=== PATIENT | male | born 1965 | race Caucasian/White ===

== ENCOUNTER 2017-07-10 07:52 | Emergency (ER) | payer OTHER ==
[2017-07-10 08:10] VITALS: TEMP 98.7; BMI 26.3
[2017-07-10] MEDS ORDERED: ACETAMINOPHEN 325 MG TABLET (FP) PO ONE (09:02)
[2017-07-10] MEDS ORDERED: ACETAMINOPHEN 325 MG TABLET (FP) ONE (09:06)
--- NOTE | 2017-07-10 09:12 | PDOC ---
History of Present Illness - General Chief Complaint: Edema Stated Complaint: PAIN IN LEGS Time Seen by Provider: 07/10/17 08:26 History Source: Patient Exam Limitations: No Limitations - History of Present Illness Initial Comments: 07/10/17 09:02 Patient is a 51-year-old male past medical history of DVT of the left leg, anxiety, bunions who presents to the emergency department with left leg swelling and pain. Patient states that his symptoms began approximately 1 month ago, however, they got worse over the last 2 days. Patient states that the swelling has increased, and it hurts to the touch. He states that he is never had pain in his leg like this before. He also states that he had chest pain approximately 1 month ago when the pain in his leg started. He denies chest pain currently. Denies fevers, chills, shortness of breath, cough, weakness, numbness and tingling of the leg, falls. Denies recent travel. Past History - Travel Traveled outside of the country in the last 30 days: No Close contact w/someone who was outside of country & ill: No - Past Medical History Allergies/Adverse Reactions: Allergies Allergy/AdvReac Type Severity Reaction Status Date / Time No Known Allergies Allergy Verified 07/10/17 08:03 Home Medications: Ambulatory Orders Cephalexin Monohydrate [Keflex -] 500 mg PO Q8H #21 capsule 07/10/17 Clonazepam [Klonopin -] 0.5 mg PO QID 07/10/17 Tramadol HCl 50 mg PO BID #7 tablet MDD 2 07/10/17 COPD: No DVT: Yes - Immunization History Immunization Up to Date: Yes - Suicide/Smoking/Psychosocial Hx Smoking Status: No Smoking History: Never smoked Have you smoked in the past 12 months: No Number of Cigarettes Smoked Daily: 0 Hx Alcohol Use: No Drug/Substance Use Hx: No Review of Systems - Review of Systems Able to Perform ROS?: Yes Comments:: 07/10/17 10:45 CONSTITUTIONAL: Absent: fever, chills, diaphoresis, generalized weakness, malaise, loss of appetite HEENT: Absent: rhinorrhea, nasal congestion, throat pain, throat swelling, difficulty swallowing, mouth swelling, ear pain, eye pain, visual Changes CARDIOVASCULAR: Absent: chest pain, loss of consciousness, palpitations, irregular heart rate, peripheral edema RESPIRATORY: Absent: cough, shortness of breath, dyspnea with exertion, orthopnea, wheezing, stridor, hemoptysis GASTROINTESTINAL: Absent: abdominal pain, abdominal distension, nausea, vomiting, diarrhea, constipation, melena, hematochezia GENITOURINARY: Absent: dysuria, frequency, urgency, hesitancy, hematuria, flank pain, genital pain MUSCULOSKELETAL: Present: Edema/pain to L lower extremity. Absent: myalgia, arthralgia, joint swelling SKIN: Absent: rash, itching, pallor HEMATOLOGIC/IMMUNOLOGIC: Present: Hx of DVT in L leg Absent: easy bleeding, easy bruising, lymphadenopathy, frequent infections ENDOCRINE: Absent: unexplained weight gain, unexplained weight loss, heat intolerance, cold intolerance NEUROLOGIC: Absent: headache, focal weakness or paresthesias, dizziness, unsteady gait, seizure, mental status changes, bladder or bowel incontinence PSYCHIATRIC: Absent: anxiety, depression, suicidal or homicidal ideation, hallucinations. Is the patient limited Georgian proficient: No *Physical Exam - Vital Signs Last Vital Signs Temp Pulse Resp BP Pulse Ox 98.7 F 96 H 20 136/87 97 07/10/17 07:59 07/10/17 07:59 07/10/17 07:59 07/10/17 07:59 07/10/17 07:59 - Physical Exam Comments: 07/10/17 10:46 GENERAL: Well developed, well nourished. Awake and alertx3. No acute distress, laying on exam bed breathing easily. HEENT: Normocephalic, atraumatic. PERRLA, EOMI. No conjunctival pallor. Sclera are non- icteric. Moist mucous membranes. Oropharynx is clear. NECK: Supple. Full ROM. No JVD. Carotid pulses 2+ and symmetric, without bruits. No thyromegaly. No lymphadenopathy. CARDIOVASCULAR: Regular rate and rhythm. No murmurs, rubs, or gallops. Distal pulses are 2+ and symmetric. PULMONARY: No evidence of respiratory distress. Lungs clear to auscultation bilaterally. No wheezing, rales or rhonchi. ABDOMINAL: Soft. Non-tender. Non-distended. No rebound or guarding. No organomegaly. Normoactive bowel sounds. MUSCULOSKELETAL Normal range of motion at all joints. No bony deformities or tenderness. No CVA tenderness. EXTREMITIES: 2+ pitting edema to the LLE. DP and PT pulses 2+ b/l. Sensation grossly intact. TTP of the calf. (+) homans sign. No cyanosis. No clubbing. SKIN: Warm and dry. Normal capillary refill. No rashes. No jaundice. NEUROLOGICAL: Alert, awake, appropriate. Cranial nerves 2-12 intact. No deficits to light touch and temperature in face, upper extremities and lower extremities. No motor deficits in the in face, upper extremities and lower extremities. Normoreflexic in the upper and lower extremities. Normal speech. Toes are down- going bilaterally. Gait is normal without ataxia. PSYCHIATRIC: Cooperative. Good eye contact. Appropriate mood and affect. ED Treatment Course - LABORATORY CBC & Chemistry Diagram: 07/10/17 10:00 07/10/17 10:00 Medical Decision Making - Medical Decision Making 07/10/17 09:48 Patient is a 51-year-old male past medical history of DVT in the left leg, anxiety, who presents to the emergency department today complaining of left lower leg pain. We will rule out repeat DVT of the lower left extremity. Also probable differential diagnosis includes thrombophlebitis, swelling due to bunion. 1.CBC, CMP, PT/INR, PTT, troponin, BUN 2.duplex vascular study of the left leg. 3.Tylenol 4.reevaluate 07/10/17 10:49 No leukocytosis, DVT study is currently negative for the left lower extremity. Waiting on other lab results. Patient feels better with Tylenol. 07/10/17 12:07 Lab work shows a mildly elevated Creatinine 1.4, CK slightly elevated. DDx phlebitis vs a cellulitis. Will d/c home at this time with keflex and supportive care instructions. Pt. has f/u appointment with PCP on Wednesday and was instructed to keep the appointment. *DC/Admit/Observation/Transfer Diagnosis at time of Disposition: Phlebitis Cellulitis Qualifiers: Site of cellulitis: extremity Site of cellulitis of extremity: lower extremity Laterality: left Qualified Code(s): L03.116 - Cellulitis of left lower limb; L03.116 - Cellulitis of left lower limb - Discharge Dispostion Disposition: HOME Condition at time of disposition: Good Admit: No - Referrals Referrals: Nicolette Santiago [Primary Care Provider] - Ryan Zabala MD [Staff Physician] - - Patient Instructions Printed Discharge Instructions: DI for Peripheral Edema, Unilateral Additional Instructions: You have leg swelling. You were prescribed antibiotics. Please take the medication as prescribed. Keep your leg elevated when resting. Use heating packs on the leg for 20 minute periods 3-5 times a day to help with the swelling. Wear the YUDI wrap for comfort. You were prescribed tramadol as well for pain. Take this medication if your symptoms are not relieved by Tylenol. Follow the instructions on the prescription bottle for Tramadol. Do not take more than 2 tabs a day. You may take Tylenol 350 every 4-6 hours not to exceed 4 ,000mg a day. Keep your follow up with your primary care doctor on Wednesday. One of your kidney function tests were elevated today. Please drink plenty of water and follow up with your primary care doctor about the results. Return to the ED if you have worsening pain, fevers, chills, or any changes in your symptoms.
[2017-07-10 10:29] LABS: MCH 30.7 pg (25.7-33.7); MCHC 33.4 g/dl (32.0-35.9); MEAN PLT VOLUME 9.6 fl (7.5-11.1); NEUT % 68.8 % (42.8-82.8); PLATELET COUNT 214 K/MM3 (134-434); RDW 14.6 % (11.9-15.9); WHITE BLOOD COUNT 7.4 K/mm3 (4.0-10.0)
[2017-07-10 10:49] LABS: ALBUMIN 3.6 g/dl (3.4-5.0); ANION GAP 8 (8-16); BILIRUBIN,TOTAL 0.3 mg/dL (0.2-1.0); CALCIUM 8.5 mg/dL (8.5-10.1); CO2 26 mmol/L (21-32); CREATININE 1.4 mg/dL (0.7-1.3); GLUCOSE,RANDOM 102 mg/dL (74-106); SGOT/AST 33 U/L (15-37); SGPT/ALT 39 U/L (12-78); TOT PROT 6.7 g/dl (6.4-8.2)
[2017-07-10 10:52] LABS: ALK PHOS 77 U/L (45-117); CPK 420 IU/L (39-308); TROPONIN I < 0.02 ng/ml (0.00-0.05)
[2017-07-10 10:58] LABS: PROTHROMBIN TIME (PATIENT) 11.3 SEC (9.98-11.88)
[2017-07-10 11:00] LABS: ACTIVATED PTT 30.6 SECONDS (26.9-34.4)
--- NOTE | 2017-07-10 12:07 | PDOC ---
*Physical Exam - Vital Signs Last Vital Signs Temp Pulse Resp BP Pulse Ox 98.7 F 96 H 20 136/87 97 07/10/17 07:59 07/10/17 07:59 07/10/17 07:59 07/10/17 07:59 07/10/17 07:59 ED Treatment Course - LABORATORY CBC & Chemistry Diagram: 07/10/17 10:00 07/10/17 10:00 - ADDITIONAL ORDERS Additional order review: Laboratory Results 07/10/17 07/10/17 10:00 10:00 PT with INR 11.30 INR 1.00 PTT (Actin FS) 30.6 Sodium 139 Potassium 4.3 Chloride 105 Carbon Dioxide 26 Anion Gap 8 BUN 18 Creatinine 1.4 H Creat Clearance w eGFR 53.22 Random Glucose 102 Calcium 8.5 Total Bilirubin 0.3 AST 33 ALT 39 Alkaline Phosphatase 77 Creatine Kinase 420 H Creatine Kinase Index 1.0 CK-MB (CK-2) 4.378 H Troponin I < 0.02 B-Natriuretic Peptide 78.53 Total Protein 6.7 Albumin 3.6 07/10/17 10:00 RBC 4.22 MCV 92.0 MCHC 33.4 RDW 14.6 MPV 9.6 Neutrophils % 68.8 Lymphocytes % 16.0 Monocytes % 9.2 Eosinophils % 4.0 Basophils % 2.0 - Medications Given in the ED: ED Medications Discontinued Medications Generic Name Dose Route Start Last Admin Trade Name Juan Aq PRN Reason Stop Dose Admin Acetaminophen 650 mg 07/10/17 09:02 07/10/17 09:00 Tylenol - PO 07/10/17 09:03 650 mg ONCE ONE Administration Medical Decision Making - Medical Decision Making 07/10/17 12:06 The patient was seen and evaluated in conjunction with DARRIUS Sarkar under my direct supervision, ancillary studies were reviewed. I independently interviewed and evaluated the patient and I agree with the plan as outlined by DARRIUS Sarkar 51y M hx of dvt presents with complaint of persistent L leg pain, fels sore after walking, had seen his PMD and gone to another ER had received xrays. No associated cp, sob, fever/chlls. on exam pt has mild edema and erythema of his LLE from ankle to the mid hill, neg homans sign, mild warmth, no streaking. suspect celluitis - will treat with keflex pt has pmd fu in a few days scheduled already labs noted for cr of 1.4 - will have pt fu this up with his pmd pt given a copy of his labs *DC/Admit/Observation/Transfer Diagnosis at time of Disposition: Phlebitis Cellulitis Qualifiers: Site of cellulitis: extremity Site of cellulitis of extremity: lower extremity Laterality: left Qualified Code(s): L03.116 - Cellulitis of left lower limb - Discharge Dispostion Disposition: HOME Condition at time of disposition: Improved Admit: No - Prescriptions Prescriptions: Cephalexin Monohydrate [Keflex -] 500 mg PO Q8H #21 capsule Tramadol HCl 50 mg PO BID #7 tablet MDD 2 - Referrals Referrals: Nicolette Santiago [Primary Care Provider] - Ryan Zabala MD [Staff Physician] - - Patient Instructions Printed Discharge Instructions: DI for Peripheral Edema, Unilateral Additional Instructions: You have leg swelling. You were prescribed antibiotics. Please take the medication as prescribed. Keep your leg elevated when resting. Use heating packs on the leg for 20 minute periods 3-5 times a day to help with the swelling. Wear the YUDI wrap for comfort. You were prescribed tramadol as well for pain. Take this medication if your symptoms are not relieved by Tylenol. Follow the instructions on the prescription bottle for Tramadol. Do not take more than 2 tabs a day. You may take Tylenol 350 every 4-6 hours not to exceed 4 ,000mg a day. Keep your follow up with your primary care doctor on Wednesday. One of your kidney function tests were elevated today. Please drink plenty of water and follow up with your primary care doctor about the results. Return to the ED if you have worsening pain, fevers, chills, or any changes in your symptoms.
[2017-07-10 12:58] VITALS: BP 131/80; PULSE 89
--- NOTE | 2017-07-14 13:00 | EKG ---
Test Reason : Blood Pressure : / mmHG Vent. Rate : 073 BPM Atrial Rate : 073 BPM P-R Int : 156 ms QRS Dur : 086 ms QT Int : 380 ms P-R-T Axes : 075 036 043 degrees QTc Int : 418 ms NORMAL SINUS RHYTHM EARLY REPOLARIZATION NO PREVIOUS ECGS AVAILABLE Confirmed by JALEN LOWE MD ([id number]) on 07/14/2017 12:59:34 PM Referred By: Confirmed By:JALEN LOWE MD
== END 2017-07-10 12:58 | disposition home or self-care (01) ==
LOC: JER 07:52
DX: L03.116 Cellulitis of left lower limb (principal); I80.02 Phlebitis and thrombophlebitis of superficial vessels of left lower extremity; Z86.718 Personal history of other venous thrombosis and embolism; F41.9 Anxiety disorder, unspecified
CPT/HCPCS: 36415; 80053; 82550; 82553; 83880; 84484; 85025; 85610; 85730; 93005; 93010; 93971-TC; 99281-25

== ENCOUNTER 2017-10-22 06:03 | Emergency (ER) | payer OTHER ==
[2017-10-22 06:49] VITALS: BMI 25.1
--- NOTE | 2017-10-22 07:43 | PDOC ---
History of Present Illness - General Chief Complaint: Chronic pain Stated Complaint: PAIN Time Seen by Provider: 10/22/17 07:04 History Source: Patient Exam Limitations: No Limitations - History of Present Illness Initial Comments: 10/22/17 07:41 51 y/o homeless M with PMH DVT (2016; tx with heparin gtt, sent home with oral a /c however unable to take d/t living situation), R bunionectomy (2014; [facility]), anxiety disorder, who presents to the ED c/o burning pain in his b/l lower extremities over the last 10 hrs. As per pt, yesterday he got lost so [place]. At 9PM, he noticed that his soles started burning, and his toes developed numbness and tingling and became "painful". The pain was constant, 10/10. During this time, pt also endorsed edema in his LLE. Pt's sx are exacerbated with movement, and alleviated by rest. Pt denies ARROYO, fever, chills, SOB, or changes in urinary or bowel function. PMH: as above PsxH: R bunionectomy (2014; [facility]) meds: Klonapin q6h PRN (rx by Dr. Jose F Escamilla) allergies: Tylenol - emesis FH: mother- dementia SH: has been homeless since last June, rarely uses half-way denies smoking, alcohol or recreational drug use Past History - Travel Traveled outside of the country in the last 30 days: No - Past Medical History Allergies/Adverse Reactions: Allergies Allergy/AdvReac Type Severity Reaction Status Date / Time No Known Allergies Allergy Verified 10/22/17 08:50 Home Medications: Ambulatory Orders Gabapentin [Neurontin] 300 mg PO DAILY #7 capsule 10/22/17 COPD: No DVT: Yes (tx 2016 heparin gtt) - Surgical History Orthopedic Surgery: Yes (R bunionectomy ([facility] 2014)) - Family Disease History Family Disease History: Other: Mother (dementia) - Immunization History Immunization Up to Date: Yes - Suicide/Smoking/Psychosocial Hx Smoking Status: No Smoking History: Unknown if ever smoked Have you smoked in the past 12 months: No Number of Cigarettes Smoked Daily: 0 Information on smoking cessation initiated: No Hx Alcohol Use: No Drug/Substance Use Hx: No Hx Substance Use Treatment: No Review of Systems - Review of Systems Able to Perform ROS?: Yes Is the patient limited Kazakh proficient: No Musculoskeletal: Yes: Joint Swelling (LLE edema), Muscle Pain *Physical Exam - Vital Signs Last Vital Signs Temp Pulse Resp BP Pulse Ox 98.1 F 71 18 118/72 100 10/22/17 06:43 10/22/17 06:43 10/22/17 06:43 10/22/17 06:43 10/22/17 06:43 - Physical Exam General Appearance: Yes: Appropriately Dressed HEENT: positive: EOMI, DEANNA Neck: positive: Supple Respiratory/Chest: positive: Lungs Clear Cardiovascular: positive: Regular Rhythm, Regular Rate Vascular Pulses: Dorsalis-Pedis (R): 2+, Doralis-Pedis (L): 2+ Gastrointestinal/Abdominal: positive: Normal Bowel Sounds, Flat Musculoskeletal: positive: Normal Inspection, Muscle Spasm, Other Extremity: positive: Normal Inspection, Normal Range of Motion Neurologic: positive: thread drawer II-XII NML intact ED Treatment Course - LABORATORY CBC & Chemistry Diagram: 10/22/17 08:22 10/22/17 08:22 Medical Decision Making - Medical Decision Making 10/22/17 08:15 51 y/o homeless M with PMH DVT (2015; tx with heparin gtt, sent home with oral a /c however unable to take d/t living situation), R bunionectomy (2014; [facility]), anxiety disorder, who presents to the ED c/o burning pain in his b/l lower extremities over the last 10 hrs. Pt with neuropathy, will check B12, folate. Though pt without hx DM, will check A1c. It is also possible that pt has neuropathy associated with DVT- has hx L DVT. Will order b/l duplex to check. Does not appear to be fungal, as pt without pruritis or increased erythema Will order CBC BMP HbA1c Vit B12 Duplex sono -RLE, LLE Will give Motrin 600mg PO x 1 -for pain control 10/22/17 09:24 Labs returned, pt without white count, other labs WNL. Cr 1.5, however baseline 1.4 Duplex pending 10/22/17 09:58 Duplex (-) for DVT Called lab, Vitamin B12, A1c level still pending. Will f/u 10/22/17 11:07 A1c returned 6.1. B12 pending - will most likely return tomorrow. Pt for discharge on gabapentin 300mg x 1 week *DC/Admit/Observation/Transfer Diagnosis at time of Disposition: Neuropathy - Discharge Dispostion Disposition: HOME Condition at time of disposition: Stable Admit: No - Prescriptions Prescriptions: Gabapentin [Neurontin] 300 mg PO DAILY #7 capsule - Referrals Referrals: Nicolette Santiago [Primary Care Provider] - Camden Barlow MD [Staff Physician] - - Patient Instructions Additional Instructions: You were recently in the hospital for numbness and tingling in your feet. We are sending you home with: Gabapentin 300mg - take one pill a day for the next week. Take at night before bed. Please follow up with: Dr. Camden Barlow and Dr. Liliana Martinez (resident) at the clinic at: [address] [place], [place] Call [phone] to schedule an appointment. We recommend you follow up on Wednesday- October 26, 2016 or November 02, 2016. - Post Discharge Activity
--- NOTE | 2017-10-22 07:48 | PDOC ---
Attending Attestation - HPI HPI: 10/22/17 08:27 The patient is a 51 year old male, with a significant past medical history of left lower extremity DVT(2016) and anxiety, who presents to the emergency department with bilateral foot burning and pain since last night. The patient reports he was doing about 4 hours of walking yesterday, and subsequently felt the soles of his feet burning. He reports associated numbness and tingling in his toes bilaterally, left lower extremity edema, and bilateral foot pain(rates it a 10/10) Patient reports his symptoms are exacerbated with movement. Patient denies any associated chest pain, shortness of breath, diaphoresis, or palpitations. He denies any abdominal pain, nausea, or vomiting. He denies any fever or chills. He denies any dysuria, hematuria, frequency, or urgency. Patient is requesting pain medications. Allergies: Tylenol Past Surgical History: Bunionectomy Social History: Non smoker. No ETOH or recreational drug use. Patient reports he is homeless. PCP: Dr. Kohler - Medical Decision Making 10/22/17 0 Documentation prepared by Lynsey Gonzalez, acting as director medical writing for Raquel Thomas MD. <Lynsey Gonzalez - Last Filed: 10/22/17 08:27> - Resident Resident Name: Liliana Martinez - ED Attending Attestation I have performed the following: I have examined & evaluated the patient, The case was reviewed & discussed with the resident, I agree w/resident's findings & plan, Exceptions are as noted - Physicial Exam PE: GENERAL: Awake, alert, and fully oriented, in no acute distress HEAD: No signs of trauma EYES: PERRLA, EOMI, sclera anicteric, conjunctiva clear ENT: Auricles normal inspection, hearing grossly normal, nares patent, oropharynx clear without exudates. Moist mucosa NECK: Normal ROM, supple, no lymphadenopathy, JVD, or masses LUNGS: Breath sounds equal, clear to auscultation bilaterally. No wheezes, and no crackles HEART: Regular rate and rhythm, normal S1 and S2, no murmurs, rubs or gallops ABDOMEN: Soft, nontender, normoactive bowel sounds. No guarding, no rebound. No masses EXTREMITIES: Normal range of motion. 1+ pitting edema RLE to ankle. No clubbing or cyanosis. No cords, erythema, or tenderness NEUROLOGICAL: Cranial nerves II through XII grossly intact. Normal speech, normal gait SKIN: Warm, Dry, normal turgor, no rashes. +Peeling skin to the feet B/L, no erythema. +Small L great toe subungual hematoma without swelling. - Medical Decision Making Pt with tingling and pain to both feet after walking for hours yesterday. Patient is homeless, states his shoes were irritating his feet. Shoes were not wet. Denies history of HIV, alcohol, DM. Will obtain dopplers (hx of DVT to L leg, and the R leg is currently swollen) and labs including A1C. DDx DVT vs naturopathy. Likely DC home. <Raquel Thomas - Last Filed: 10/22/17 08:40>
[2017-10-22] MEDS ORDERED: IBUPROFEN 600 MG TABLET (FP) PO ONE ×2 (08:17→09:27)
[2017-10-22 08:52] LABS: BASO % 1.2 % (0-2.0); EOS % 1.3 % (0-4.5); HEMATOCRIT 40.5 % (35.4-49); HEMOGLOBIN 12.9 GM/dL (11.7-16.9); LYMPH % 15.6 % (8-40); MCH 29.4 pg (25.7-33.7); MEAN PLT VOLUME 9.7 fl (7.5-11.1); MONO % 9.4 % (3.8-10.2); NEUT % 72.5 % (42.8-82.8); PLATELET COUNT 188 K/MM3 (134-434); RDW 14.2 % (11.9-15.9); WHITE BLOOD COUNT 9.8 K/mm3 (4.0-10.0)
[2017-10-22 09:01] LABS: ANION GAP 8 (8-16); BLOOD UREA NITROGEN 18 mg/dL (7-18); CALCIUM 8.8 mg/dL (8.5-10.1); CHLORIDE 107 mmol/L (98-107); CO2 29 mmol/L (21-32); CREATININE 1.5 mg/dL (0.7-1.3); GLUCOSE,RANDOM 101 mg/dL (74-106); POTASSIUM 4.4 mmol/L (3.5-5.1); SODIUM 144 mmol/L (136-145)
[2017-10-22 12:43] VITALS: BP 117/36; PULSE 74; TEMP 98
== END 2017-10-22 14:02 | disposition home or self-care (01) ==
LOC: JER 06:03
DX: G62.9 Polyneuropathy, unspecified (principal); Z86.718 Personal history of other venous thrombosis and embolism; Z59.0 Homelessness
CPT/HCPCS: 36415; 80048; 82607; 83036; 85025; 93970-TC; 99284-25

== ENCOUNTER 2019-07-29 16:28 | Emergency (ER) | payer OTHER ==
[2019-07-29 16:35] VITALS: BMI 27.8
--- NOTE | 2019-07-29 17:33 | PDOC ---
History of Present Illness - History of Present Illness Initial Comments: 07/29/19 20:56 Mr. Mendes is a 53 year old man with a pmhx DVT in the LLE in 2016 and anxiety who presents to the ED complaining of stomach "gurgling" and pain. The patient states that he has had this pain for 2 years and seen many doctors about it. In the past he states it has been attributed to hunger pangs because he is homeless , however he states he has these pains and gurgling even after he eats. He states that he had seen a GI doctor before and had gotten xrays, CTs, and an endoscopy. He said one doctor told him there was blood in his stomach and gave him 3 medications to take but he was not able to tolerate them and did not finish taking them. The patient also said the EGD showed some acid reflux but denied having any stomach ulcers. He says he was previously in a senior care for the last 4 months but is not staying at one now because he didn't like it there. He has a membership to a gym and a storage locker for his belongings, he splits his time between the gym, storage locker, and a library. He states he doesn't really get to sleep much. On ROS he denies, headache, nausea, vomiting, CP, SOB, diarrhea, constipation, dysuria, or generalized weakness. He endorses abdominal pain and distention. <Sue Means - Last Filed: 07/30/19 00:01> <Sherly Horvath - Last Filed: 07/30/19 00:49> - General Chief Complaint: Pain Stated Complaint: ABDOMEN EVALUATION Time Seen by Provider: 07/29/19 17:32 Past History - Travel Traveled outside of the country in the last 30 days: No Close contact w/someone who was outside of country & ill: No - Past Medical History COPD: No DVT: Yes (tx 2016 heparin gtt) - Surgical History Orthopedic Surgery: Yes (R bunionectomy ([facility] 2015)) - Immunization History Immunization Up to Date: Yes - Psycho Social/Smoking Cessation Hx Smoking Status: No Smoking History: Never smoked Have you smoked in the past 12 months: No Number of Cigarettes Smoked Daily: 0 Hx Alcohol Use: No Drug/Substance Use Hx: No Hx Substance Use Treatment: No <Sue Means - Last Filed: 07/30/19 00:01> <Sherly Horvath - Last Filed: 07/30/19 00:49> - Past Medical History Allergies/Adverse Reactions: Allergies Allergy/AdvReac Type Severity Reaction Status Date / Time No Known Allergies Allergy Verified 07/29/19 16:34 Home Medications: Ambulatory Orders NK [No Known Home Medication] 07/29/19 Review of Systems - Review of Systems Able to Perform ROS?: Yes Is the patient limited Bengali proficient: No Constitutional: No: Chills, Fever, Loss of Appetite, Weakness HEENTM: No: Recent change in vision, Hearing Loss, Throat Pain, Mouth Pain Respiratory: No: Cough, Orthopnea, Shortness of Breath Cardiac (ROS): No: Chest Pain ABD/GI: Yes: Abdominal Distended, Abdominal cramping. No: Blood Streaked Bowels , Constipated, Diarrhea, Nausea, Vomiting Musculoskeletal: No: Back Pain, Joint Pain, Muscle Weakness Integumentary: No: Bruising, Change in Hair/Nails, Flushing, Rash Neurological: No: Headache, Numbness, Paresthesia, Tingling Psychiatric: Yes: Anxiety Endocrine: No: Excessive Sweating, Flushing, Intolerance to Cold, Intolerance to Heat All Other Systems: Reviewed and Negative <Sue Means - Last Filed: 07/30/19 00:01> *Physical Exam - Vital Signs Last Vital Signs Temp Pulse Resp BP Pulse Ox 98.2 F 100 H 18 132/87 99 07/29/19 16:30 07/29/19 16:30 07/29/19 16:30 07/29/19 16:30 07/29/19 16:30 - Physical Exam General Appearance: Yes: Nourished, Appropriately Dressed, Other (extremely anxious about his symptoms and talkative). No: Apparent Distress HEENT: positive: EOMI, DEANNA, Normal ENT Inspection, Normal Voice, Pharynx Normal Neck: positive: Trachea midline, Supple. negative: Tender Respiratory/Chest: positive: Lungs Clear, Normal Breath Sounds. negative: Respiratory Distress, Accessory Muscle Use, Crackles, Rhonchi, Wheezing Cardiovascular: positive: Regular Rhythm, Regular Rate, S1, S2 Gastrointestinal/Abdominal: positive: Normal Bowel Sounds, Tender (tender in the lower half of the abdomen), Soft, Distended. negative: Rebound Musculoskeletal: positive: Normal Inspection. negative: CVA Tenderness Extremity: positive: Normal Capillary Refill, Normal Inspection, Normal Range of Motion. negative: Pedal Edema, Swelling, Calf Tenderness, Erythema Integumentary: positive: Normal Color, Dry, Warm Neurologic: positive: flare maker II-XII NML intact, Fully Oriented, Alert, Normal Mood/ Affect, Normal Response, Motor Strength 5/5 <Sue Means - Last Filed: 07/30/19 00:01> - Vital Signs Last Vital Signs Temp Pulse Resp BP Pulse Ox 98.5 F 100 H 73 H 126/78 100 07/29/19 22:56 07/29/19 16:30 07/29/19 22:56 07/29/19 22:56 07/29/19 22:56 <Sherly Horvath - Last Filed: 07/30/19 00:49> ED Treatment Course - LABORATORY CBC & Chemistry Diagram: 07/29/19 19:53 07/29/19 19:53 <Sue Means - Last Filed: 07/30/19 00:01> - LABORATORY CBC & Chemistry Diagram: 07/29/19 19:53 07/29/19 19:53 - ADDITIONAL ORDERS Additional order review: Laboratory Results 07/29/19 07/29/19 19:53 19:53 Sodium 140 Potassium 5.1 Chloride 109 H Carbon Dioxide 31 Anion Gap 0 L BUN 19.3 H Creatinine 1.4 H Est GFR (CKD-EPI)AfAm 65.55 Est GFR (CKD-EPI)NonAf 56.56 Random Glucose 124 H Calcium 9.1 Total Bilirubin 0.8 AST 88 H ALT 66 H Alkaline Phosphatase 67 Total Protein 6.5 Albumin 3.9 Total Amylase 70 Lipase 128 07/29/19 19:53 RBC 4.37 MCV 93.9 MCHC 33.0 RDW 14.4 MPV 9.3 Neutrophils % 70.2 Lymphocytes % 18.7 Monocytes % 8.4 Eosinophils % 1.7 Basophils % 1.0 - Medications Given in the ED: ED Medications Discontinued Medications Generic Name Dose Route Start Last Admin Trade Name Freq PRN Reason Stop Dose Admin Pantoprazole Sodium 20 mg 07/29/19 18:35 07/29/19 19:55 Protonix - PO 07/29/19 18:36 20 mg ONCE ONE Administration <Sherly Horvath - Last Filed: 07/30/19 00:49> Medical Decision Making - Medical Decision Making 07/29/19 21:18 Mr. Mendes is a 53 year old man with a pmhx DVT in the LLE in 2016 and anxiety who presents to the ED complaining of stomach "gurgling" and pain. The patient gave somewhat of an inconsistent history and his physical exam was unremarkable. Will order - CBC -CMP -Amylase - Lipase - Protonix - PO challenge to see if pt tolerates diet Will f/u with how patient is doing 07/29/19 21:37 Pt reporting his stomach still hurts but did not throw up his meal. Labs unremarkable, will continue to observe patient for now, can likely be discharged in the morning <Sue Means - Last Filed: 07/30/19 00:01> Discharge - Discharge Information Problems reviewed: Yes - Admission No <Sue Means - Last Filed: 07/30/19 00:01> - Discharge Information Problems reviewed: Yes <Sherly Horvath - Last Filed: 07/30/19 00:49> - Discharge Information Clinical Impression/Diagnosis: Abdominal pain Qualifiers: Abdominal location: unspecified location Qualified Code(s): R10.9 - Unspecified abdominal pain Condition: Good Disposition: HOME - Follow up/Referral Referrals: Nicolette Santiago [Primary Care Provider] - - Patient Discharge Instructions Patient Printed Discharge Instructions: DI for Gastroesophageal Reflux Disease (GERD), DI for Abdominal Pain-Adult Additional Instructions: You were in the hospital because you were experiencing diffuse abdominal pain. We did a physical exam and basic labs on you, all of which were normal. We gave you a trial diet to see if you could tolerate food and you were able to tolerate it without nausea/ vomiting or worsening pain. We gave you a medicine called protonix to help with your symptoms. The most likely cause of your pain was acid reflux, you can take tums which you can purchase over the counter to help with your pain. If you experience worsening abdominal pain, nausea, vomiting, diarrhea, constipation or any signs of GI bleeding including red or dark colored vomit, red or black colored stools, please come back to the emergency department immediately. - Post Discharge Activity
[2019-07-29] MEDS ORDERED: PANTOPRAZOLE 20 MG TABLET (FP) PO ONE ×2 (18:35→19:40)
[2019-07-29 20:00] LABS: EOS % 1.7 % (0-4.5); HEMATOCRIT 41.1 % (35.4-49); HEMOGLOBIN 13.6 GM/dL (11.7-16.9); LYMPH % 18.7 % (8-40); MEAN CELL VOLUME 93.9 fl (80-96); MEAN PLT VOLUME 9.3 fl (7.5-11.1); MONO % 8.4 % (3.8-10.2); NEUT % 70.2 % (42.8-82.8); PLATELET COUNT 184 K/MM3 (134-434); RBC 4.37 M/mm3 (4.00-5.60); RDW 14.4 % (11.9-15.9); WHITE BLOOD COUNT 6.4 K/mm3 (4.0-10.0)
[2019-07-29 20:31] LABS: ALBUMIN 3.9 g/dl (3.4-5.0); BILIRUBIN,TOTAL 0.8 mg/dL (0.2-1); BLOOD UREA NITROGEN 19.3 mg/dL (7-18); CALCIUM 9.1 mg/dL (8.5-10.1); CREATININE 1.4 mg/dL (0.55-1.3); POTASSIUM 5.1 mmol/L (3.5-5.1); TOT PROT 6.5 g/dl (6.4-8.2)
--- NOTE | 2019-07-29 21:41 | PDOC ---
Attending Attestation - ED Attending Attestation I have performed the following: I have examined & evaluated the patient, The case was reviewed & discussed with the resident, I agree w/resident's findings & plan - HPI HPI: 07/29/19 21:39 Pt is homeless temporarily until his next SSI check comes in a month. He has been living in his [employer] gym and at the public library. He has some stomach gurgling; but no fever chills, vomiting, diarrhea. Incidentally ran out of $ for food. - Physicial Exam PE: 07/29/19 21:40 Normal Exam Agree with resident exam - Medical Decision Making 07/29/19 21:41 Pt was fed in the ER and he will be discharged at sunrise.
[2019-07-30 05:37] VITALS: BP 115/66; PULSE 79; TEMP 97.3
== END 2019-07-30 06:24 | disposition home or self-care (01) ==
LOC: JER 16:28
DX: R10.9 Unspecified abdominal pain (principal); Z86.718 Personal history of other venous thrombosis and embolism; F41.9 Anxiety disorder, unspecified; Z59.0 Homelessness
CPT/HCPCS: 36415; 80053; 82150; 83690; 85025; 99282-25

== ENCOUNTER 2019-11-25 07:28 | Inpatient (IN) | payer OTHER ==
[2019-11-25 08:12] VITALS: BMI 24.4
[2019-11-25 09:18] LABS: BASO % 1.3 % (0-2.0); EOS % 1.5 % (0-4.5); HEMATOCRIT 39.6 % (35.4-49); LYMPH % 20.6 % (8-40); MCH 30.9 pg (25.7-33.7); MCHC 32.9 g/dl (32.0-35.9); MEAN CELL VOLUME 93.8 fl (80-96); MONO % 8.1 % (3.8-10.2); NEUT % 68.5 % (42.8-82.8); PLATELET COUNT 188 K/MM3 (134-434); RBC 4.22 M/mm3 (4.00-5.60); RDW 14.2 % (11.9-15.9); WHITE BLOOD COUNT 6.5 K/mm3 (4.0-10.0)
[2019-11-25 09:26] LABS: INR 1.2 (0.83-1.09); PROTHROMBIN TIME (PATIENT) 14.2 SEC (9.7-13.0)
[2019-11-25] MEDS ORDERED: SODIUM CHLORIDE 0.9% 1000 ML INFUS.BAG IV ONE (09:34)
[2019-11-25 09:56] LABS: ALBUMIN 3.8 g/dl (3.4-5.0); ALK PHOS 82 U/L (45-117); ANION GAP 7 MMOL/L (8-16); BLOOD UREA NITROGEN 14.7 mg/dL (7-18); CALCIUM 8.9 mg/dL (8.5-10.1); CHLORIDE 110 mmol/L (98-107); CO2 28 mmol/L (21-32); CREATININE 1.5 mg/dL (0.55-1.3); GLUCOSE,RANDOM 93 mg/dL (74-106); POTASSIUM 4.2 mmol/L (3.5-5.1); SGOT/AST 35 U/L (15-37); SGPT/ALT 38 U/L (13-61); SODIUM 144 mmol/L (136-145); TOT PROT 6.8 g/dl (6.4-8.2)
[2019-11-25] MEDS ORDERED: PIPERACILLIN/TAZOB 4.5 GM 4.5 GM in DEXTROSE 5%-WATER 100 ML IVPB ONE (12:38)
[2019-11-25] MEDS ORDERED: VANCOMYCIN 1,000 MG in DEXTROSE 5%-WATER - 250 ML IVPB ONE (12:38)
[2019-11-25] MEDS ORDERED: PIPERACILLIN/TAZOB 4.5 GM 4.5 GM/100 ML BAG IVPB ONE (12:56)
[2019-11-25] MEDS ORDERED: VANCOMYCIN 1 GRAM (PRE-DOCKED) 1,000 MG/250 ML BAG IVPB ONE ×2 (12:58→13:43)
[2019-11-25 14:14] LABS: LIPASE 117 U/L (73-393)
[2019-11-25] MEDS ORDERED: APIXABAN 5 MG TABLET ONE (22:35)
[2019-11-25] MEDS: APIXABAN 5 MG TABLET PO SCH (22:56)
[2019-11-26 09:12] LABS: BASO % 1.9 % (0-2.0); HEMATOCRIT 38.6 % (35.4-49); HEMOGLOBIN 12.9 GM/dL (11.7-16.9); MCH 30.9 pg (25.7-33.7); MCHC 33.4 g/dl (32.0-35.9); MEAN CELL VOLUME 92.6 fl (80-96); MEAN PLT VOLUME 9.5 fl (7.5-11.1); MONO % 11.3 % (3.8-10.2); NEUT % 54.8 % (42.8-82.8); PLATELET COUNT 172 K/MM3 (134-434); RBC 4.17 M/mm3 (4.00-5.60); RDW 14.4 % (11.9-15.9); WHITE BLOOD COUNT 4.1 K/mm3 (4.0-10.0)
[2019-11-26 09:35] LABS: BLOOD UREA NITROGEN 13.2 mg/dL (7-18); CALCIUM 8.4 mg/dL (8.5-10.1); CREATININE 1.3 mg/dL (0.55-1.3); MAGNESIUM 2.1 mg/dL (1.8-2.4); POTASSIUM 3.9 mmol/L (3.5-5.1)
[2019-11-26] MEDS: APIXABAN 5 MG TABLET PO SCH ×2 (10:18→21:07)
[2019-11-26 16:17] LABS: URINE APPEARANCE CLEAR; URINE BILIRUBIN NEGATIVE (NEGATIVE); URINE COLOR YELLOW; URINE GLUCOSE (UA) NEGATIVE (NEGATIVE); URINE KETONE NEGATIVE (NEGATIVE); URINE LEUK ESTERASE NEGATIVE (NEGATIVE); URINE NITRITE NEGATIVE (NEGATIVE); URINE PROTEIN NEGATIVE (NEGATIVE); URINE UROBILINOGEN 0.2 mg/dL (0.2-1.0)
[2019-11-27] MEDS: APIXABAN 5 MG TABLET PO SCH ×2 (09:48→22:40)
[2019-11-27] MEDS ORDERED: INSULIN (NOVOLOG) ASPART 100 UNITS/ML 10ML VIAL ONE (20:42)
[2019-11-28] MEDS ORDERED: ACETAMINOPHEN 325 MG TABLET (FP) PO ONE (06:52)
[2019-11-28] MEDS: APIXABAN 5 MG TABLET PO SCH ×2 (09:01→22:07)
[2019-11-29] MEDS: APIXABAN 5 MG TABLET PO SCH ×2 (10:14→21:32)
[2019-11-30 08:25] LABS: BASO % 1.2 % (0-2.0); EOS % 3.6 % (0-4.5); HEMATOCRIT 42.4 % (35.4-49); LYMPH % 26.9 % (8-40); MCH 30.9 pg (25.7-33.7); MCHC 33.1 g/dl (32.0-35.9); MEAN CELL VOLUME 93.4 fl (80-96); MEAN PLT VOLUME 10.2 fl (7.5-11.1); MONO % 8.2 % (3.8-10.2); NEUT % 60.1 % (42.8-82.8); PLATELET COUNT 153 K/MM3 (134-434); RBC 4.54 M/mm3 (4.00-5.60); RDW 14.6 % (11.9-15.9); WHITE BLOOD COUNT 4.7 K/mm3 (4.0-10.0)
[2019-11-30 08:49] LABS: BLOOD UREA NITROGEN 21.9 mg/dL (7-18); CALCIUM 8.7 mg/dL (8.5-10.1); CREATININE 1.3 mg/dL (0.55-1.3); POTASSIUM 4.8 mmol/L (3.5-5.1)
[2019-11-30] MEDS: APIXABAN 5 MG TABLET PO SCH ×2 (10:51→22:18)
[2019-12-01] MEDS: APIXABAN 5 MG TABLET PO SCH ×2 (09:06→22:42)
[2019-12-02] MEDS: APIXABAN 5 MG TABLET PO SCH (10:05)
[2019-12-02 16:02] VITALS: BP 126/76; PULSE 89; TEMP 98.2
== END 2019-12-02 18:08 | disposition home or self-care (01) | DRG 249 ==
LOC: JER 07:28 → JERBED 12:41 → J5S 11-26 05:37
PROVIDERS: ADMIT Internal Medicine; ATTEND Internal Medicine
PROC: 8E0ZXY6 Isolation (ICD-10-PCS; principal; 2019-11-25)
DX: R19.7 Diarrhea, unspecified (principal); K21.9 Gastro-esophageal reflux disease without esophagitis; Z79.01 Long term (current) use of anticoagulants; N18.9 Chronic kidney disease, unspecified; Z59.0 Homelessness; Z86.718 Personal history of other venous thrombosis and embolism
CPT/HCPCS: 36415; 71046-TC-FY; 74177-TC; 80048; 80053; 81003; 82550; 82553; 83690; 83735; 84484; 85025; 85610; 87040; 87045; 87046; 87086; 87798; 87899; 93005; 93010; 99285-25; Q9967; U0002

== ENCOUNTER 2022-11-28 11:36 | Emergency (ER) | payer OTHER ==
[2022-11-28 11:55] VITALS: BP 142/86; PULSE 103; RESP 20; TEMP 98.3; BMI 27.8
[2022-11-28] MEDS ORDERED: clonazePAM 0.5 MG TABLET PO ONE (13:15)
[2022-11-28] MEDS ORDERED: clonazePAM 0.5 MG TABLET ONE (13:18)
== END 2022-11-28 13:29 | disposition home or self-care (01) ==
LOC: JERFT 11:36
DX: F41.9 Anxiety disorder, unspecified (principal); Z76.0 Encounter for issue of repeat prescription
CPT/HCPCS: 99283-25